=== PATIENT | female | born 1955 | race American Indian/Alaskan Native ===

== ENCOUNTER 2020-09-21 18:29 | Emergency (ER) | payer OTHER, MEDICARE ==
--- NOTE | 2020-09-21 23:18 | XRay Report ---
CHEST 1 VIEW INDICATION / CLINICAL INFORMATION: Palpitations, chest pain. COMPARISON: None available. FINDINGS: SUPPORT DEVICES: None. HEART / MEDIASTINUM: No significant abnormality. LUNGS / PLEURA: No significant pulmonary or pleural abnormality. No pneumothorax. ADDITIONAL FINDINGS: No significant additional findings. IMPRESSION: 1. No acute findings. Signer Name: Shobha Correa MD Signed: 09/21/2020 11:13 PM Workstation Name: [id number]
[2020-09-21 23:43] LABS: Basophils # (Auto) 0.1 K/mm3 (0.0-0.1); Basophils % (Auto) 0.9 % (0.0-1.8); Eosinophils # (Auto) 0.4 K/mm3 (0.0-0.4); Eosinophils % (Auto) 4.8 % (0.0-4.3); Hematocrit 37.8 % (30.3-42.9); Hemoglobin 12.7 gm/dl (10.1-14.3); Lymphocytes # (Auto) 2.8 K/mm3 (1.2-5.4); Mean Corpuscular HGB Conc 34 % (30-34); Mean Corpuscular Volume 96 fl (79-97); Monocytes # (Auto) 0.8 K/mm3 (0.0-0.8); Monocytes % (Auto) 9.3 % (0.0-7.3); Platelet Count 281 K/mm3 (140-440); Red Blood Count 3.93 M/mm3 (3.65-5.03); Red Cell Distribution Width 13.7 % (13.2-15.2)
[2020-09-22 00:04] LABS: Alanine Aminotransferase 46 units/L (7-56); Albumin 4.4 g/dL (3.9-5); BUN/Creatinine Ratio 11; Blood Urea Nitrogen 13 mg/dL (7-17); Calcium 9.3 mg/dL (8.4-10.2); Hemolysis Index 5
--- NOTE | 2020-09-22 02:06 | Emergency Department Report ---
ED Headache HPI - General Chief Complaint: Headache Stated Complaint: ABDOMINAL/HEAD PAIN 2WKS Time Seen by Provider: 09/22/20 01:23 - History of Present Illness Initial Comments: Chief complaint: "She left [place] with all of these physical complaints." HPI: This is a 65-year-old female with history of schizophrenia, depression, hypercholesterolemia, hypertension, obstructive sleep apnea, leg swelling, arthritis in both knees who presents with several physical concerns. She has had headache for the past 2 weeks. She feels as if her left side of her mouth was twisting. She had drooling. She has upper back pain. She felt a tightening in the between her shoulder blades. Palpitations. Dizziness. He has ankle swelling. Abdominal pain. Patient was admitted for the past 10 days [facility] for command hallucinations. She was discharged today. Patient was restarted on gabapentin. Daughter is concerned that the gabapentin is causing all the symptoms. Patient was also being considered for the diagnosis of tardive dyskinesia. Timing/Duration: other (2 weeks of symptoms) Quality: mild Head Injury Location: frontal Recent Head Trauma: occasional headaches Associated Symptoms: other (Muscle aches palpitations upper back pain abdominal pain nausea) Allergies/Adverse Reactions: Allergies hazelnut Allergy (Verified 09/22/20 01:00) Unknown ED Review of Systems ROS: Stated complaint: ABDOMINAL/HEAD PAIN 2WKS Other details as noted in HPI Comment: All other systems reviewed and negative Constitutional: denies: fever, malaise Respiratory: denies: cough, shortness of breath Cardiovascular: palpitations. denies: chest pain Gastrointestinal: abdominal pain, nausea Musculoskeletal: joint swelling ED Past Medical Hx - Past Medical History Previous Medical History?: Yes Hx Hypertension: Yes Additional medical history: Obstructive sleep apnea, hyperlipidemia, major depressive disorder, schizophrenia, - Surgical History Past Surgical History?: No - Social History Smoking Status: Never Smoker Substance Use Type: None ED Physical Exam - General Limitations: No Limitations General appearance: alert, in no apparent distress, other (Appears well, ambulates without difficulty.) - Head Head exam: Present: atraumatic, normocephalic - Eye Eye exam: Present: normal appearance - ENT ENT exam: Present: mucous membranes moist - Neck Neck exam: Present: normal inspection, full ROM - Respiratory Respiratory exam: Present: normal lung sounds bilaterally. Absent: respiratory distress, wheezes, rales, rhonchi - Cardiovascular Cardiovascular Exam: Present: regular rate, normal rhythm, normal heart sounds. Absent: systolic murmur, diastolic murmur, rubs, gallop - GI/Abdominal GI/Abdominal exam: Present: soft, normal bowel sounds. Absent: distended, tenderness, guarding, rebound - Extremities Exam Extremities exam: Present: normal inspection - Back Exam Back exam: Present: normal inspection - Neurological Exam Neurological exam: Present: alert, oriented X3, CN II-XII intact, normal gait - Expanded Neurological Exam Expanded Patient oriented to: Present: person, place, time Speech: Present: fluid speech Cranial nerves: EOM's Intact: Normal Cerebellar function: Finger to Nose: Normal Upper motor neuron: Livan Neglect: Normal Sensory exam: Upper Extremity Light Touch: Normal Motor strength exam: RUE: 5, LUE: 5, RLE: 5, LLE: 5 Best Eye Response (Abdi): (4) open spontaneously Best Motor Response ([place]): (6) obeys commands Best Verbal Response ([place]): (5) oriented Abdi Total: 15 - Psychiatric Psychiatric exam: Present: normal affect, normal mood - Skin Skin exam: Present: warm, dry, intact, normal color. Absent: rash ED Course Vital Signs 09/21/20 09/22/20 09/22/20 21:12 00:56 00:57 Temperature 97.8 F Pulse Rate 70 55 L Respiratory 18 18 Rate Blood Pressure 143/84 Blood Pressure 161/86 [Left] O2 Sat by Pulse 99 99 Oximetry 09/22/20 09/22/20 09/22/20 01:30 01:46 03:32 Temperature Pulse Rate 54 L 57 L Respiratory 16 21 16 Rate Blood Pressure 175/87 175/87 Blood Pressure [Left] O2 Sat by Pulse 99 99 Oximetry ED Medical Decision Making - Lab Data Result diagrams: 09/21/20 23:02 09/21/20 23:02 Laboratory Results - last 24 hr 09/21/20 09/21/20 23:02 23:02 WBC 8.6 RBC 3.93 Hgb 12.7 Hct 37.8 MCV 96 MCH 32 MCHC 34 RDW 13.7 Plt Count 281 Lymph % (Auto) 32.0 [place] % (Auto) 9.3 H Eos % (Auto) 4.8 H Baso % (Auto) 0.9 Lymph # (Auto) 2.8 [place] # (Auto) 0.8 Eos # (Auto) 0.4 Baso # (Auto) 0.1 Seg Neutrophils % 53.0 Seg Neutrophils # 4.6 Sodium 142 Potassium 4.1 Chloride 103.4 Carbon Dioxide 28 Anion Gap 15 BUN 13 Creatinine 1.2 Estimated GFR 55 BUN/Creatinine Ratio 11 Glucose 105 H Calcium 9.3 Total Bilirubin 0.30 AST 38 ALT 46 Alkaline Phosphatase 93 Troponin T < 0.010 Total Protein 6.9 Albumin 4.4 Albumin/Globulin Ratio 1.8 - EKG Data -: EKG Interpreted by Me EKG shows normal: sinus rhythm, axis, intervals Rate: normal - EKG Data 09/22/20 03:35 EKG obtained 2139 EKG interpreted by me Normal sinus rhythm rate 65 bpm normal axis normal intervals nonspecific T wave pattern no ST elevation - Radiology Data Radiology results: report reviewed Patient Name: ETHAN BONILLA Gender: Female Date of : 1955 Referring Provider: CANDE PÉREZ Organization: [facility] Accession Number: [id number] Requested Date: September 22, 2020 02:34 Report Status: Final Requested Procedure: 1 Procedure Description: CT head/brain wo con Modality: CT Findings Reporting MD: Shobha Correa Dictation Time: September 22, 2020 01:50 Temporary Administrative Assistant: Not available Straddle Carrier Operator Date: CT head/brain wo con INDICATION / CLINICAL INFORMATION: Patient states her face is twisting. TECHNIQUE: Axial CT imaging of the brain was obtained without contrast. Coronal and sagittal reformatted imaging obtained and reviewed. All CT scans at this location are performed using CT dose reduction for ALARA by means of automated exposure control. COMPARISON: None available. FINDINGS: No intracranial hemorrhage, mass, or midline shift is noted. No extra-axial fluid collection or suggestion of acute territorial infarction. There is a small area of encephalomalacia in the left occipital lobe, most likely from old ischemic event. Visualized paranasal sinuses and mastoid air cells are well aerated and clear. No calvarial abnormality. IMPRESSION: 1. No acute intracranial abnormality. Signer Name: Shobha Correa MD Signed: 09/22/2020 1:50 AM Workstation Name: [email or web address] Patient Name: ETHAN BONILLA Gender: Female Date of : 1955 Referring Provider: DAINA GONZALES Organization: [facility] Accession Number: [id number] Requested Date: September 21, 2020 22:42 Report Status: Final Requested Procedure: 1 Procedure Description: XR chest 1V ap Modality: XR Findings Reporting MD: Shobha Correa Dictation Time: September 21, 2020 22:13 Temporary Administrative Assistant: Not available Straddle Carrier Operator Date: CHEST 1 VIEW INDICATION / CLINICAL INFORMATION: Palpitations, chest pain. COMPARISON: None available. FINDINGS: SUPPORT DEVICES: None. HEART / MEDIASTINUM: No significant abnormality. LUNGS / PLEURA: No significant pulmonary or pleural abnormality. No pneumothorax. ADDITIONAL FINDINGS: No significant additional findings. IMPRESSION: 1. No acute findings. Signer Name: Shobha Correa MD Signed: 09/21/2020 10:13 PM Workstation Name: [email or web address] - Medical Decision Making Patient has diffuse physical complaints which appear to have been addressed by the psychiatrist. She is actually taking gabapentin for headache. She is taking meloxicam for joint pain. She has known lower extremity edema. No evidence of CVA ACS. I do suspect that patient is having tension headache and chronic joint pain daughter is concerned that her medical issues are not being addressed appropriately at [facility]. However she has been given all of her home medications as well as as needed medications to address her physical concerns. Patient is currently still a patient at [facility]. She will be discharged at 3 PM today if deemed appropriate by psychiatrist. We will arrange transportation back to [facility]. Patient has been followed by physician digital marketing assistant for primary care. Daughter requested primary care physician due to her mother's medical complexity. I have referred patient to outpatient medicine physician. CBC chemistry troponin x2 all within normal limits. Chest radiograph CT head unremarkable. EKG nonspecific findings. Critical care attestation.: If time is entered above; I have spent that time in minutes in the direct care of this critically ill patient, excluding procedure time. ED Disposition Clinical Impression: Tension headache, Arthritis, Tardive dyskinesia Disposition: DC/TX-65 PSY HOSP/PSY UNIT Is pt being admited?: No Does the pt Need Aspirin: No Referrals: ERIKA SILVERMAN MD [Staff Physician] - 3-5 Days
--- NOTE | 2020-09-22 02:55 | Cat Scan Report ---
CT head/brain wo con INDICATION / CLINICAL INFORMATION: Patient states her face is twisting. TECHNIQUE: Axial CT imaging of the brain was obtained without contrast. Coronal and sagittal reformatted imaging obtained and reviewed. All CT scans at this location are performed using CT dose reduction for TIAN Guerrero by means of automated exposure control. COMPARISON: None available. FINDINGS: No intracranial hemorrhage, mass, or midline shift is noted. No extra-axial fluid collection or sugge stion of acute territorial infarction. There is a small area of encephalomalacia in the left occipita l lobe, most likely from old ischemic event. Visualized paranasal sinuses and mastoid air cells are well aerated and clear. No calvarial abnormali ty. IMPRESSION: 1. No acute intracranial abnormality. Signer Name: Shobha Correa MD Signed: 09/22/2020 2:50 AM Workstation Name: [id number]
[2020-09-22] MEDS ORDERED: IBUPROFEN 800 MG TAB PO ONE (03:21)
[2020-09-22 05:40] VITALS: BP 160/82
--- NOTE | 2020-10-01 10:35 | Electrocardiograph Report ---
[facility] Test Date: 2020-09-21 Test Time: 21:39:17 Pat Name: ETHAN BONILLA Department: Room: Gender: F Internet Security Specialist: : 1955 Requested By: DAINA GONZALES Order Number: [id number] Reading MD: Fadi Mosher Measurements Intervals [place] Rate: 65 P: 26 [place]: 133 QRS: 18 QRSD: 93 T: -10 QT: 428 QTc: 445 Interpretive Statements Sinus rhythm Nonspecific T abnormalities, anterior leads No previous ECG available for comparison Electronically Signed On 10-01-2020 10:35:11 EDT by Fadi Mosher
== END 2020-09-22 05:44 ==
LOC: ED 18:29
DX: G24.01 Drug induced subacute dyskinesia (principal); T39.395A Adverse effect of other nonsteroidal anti-inflammatory drugs [NSAID], initial encounter; I10 Essential (primary) hypertension; M19.91 Primary osteoarthritis, unspecified site; Z88.8 Allergy status to other drugs, medicaments and biological substances; G44.209 Tension-type headache, unspecified, not intractable; Y92.89 Other specified places as the place of occurrence of the external cause
CPT/HCPCS: 36415; 70450; 71045; 80053; 84484; 85025; 93005